=== PATIENT | male | born 1965 | race Caucasian/White ===

== ENCOUNTER 2019-02-23 10:26 | Observation (INO) | payer OTHER, SELFPAY ==
[2019-02-23] VITALS (78 sets, daily range): BP systolic 114–155; BP diastolic 64–116; PULSE 59–91; RESP 10–20; TEMP 37.6; O2SAT 93–99
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
[2019-02-23 10:58] LABS: Abs Immature Grans 0.01 k/cumm (0.0-0.09); Absolute Basophil Count 0.02 k/cumm (0.0-0.2); Absolute Lymphocyte Count 2.14 k/cumm (1.2-3.4); Absolute Neutrophil Count 4.06 k/cumm (1.2-6.7); Basophils % 0.3; Eosinophils % 1.5; HCT 44.1 % (40.0-50.0); HGB 15.4 g/dL (13.5-17.5); Immature Grans % 0.1; Lymphocytes % 31.3; Mean Corp. HGB Concentration 34.9 g/dL (32.0-36.0); Mean Corpuscular Hemoglobin 31.6 pg (27.0-33.0); Mean Corpuscular Volume 90.4 fL (80-95); Mean Platelet Volume 10.7 fL (8.0-11.0); Monocytes % 7.3; Neutrophils % 59.5; Platelet Count 188 x1000/uL (130-400); RBC 4.88 m/cumm (4.50-6.00); RBC Distribution Width 12.7 % (11.8-14.1); White Blood Cell Count 6.83 k/cumm (4.4-10.8)
[2019-02-23 11:19] LABS: ALT 54 U/L (12-78); AST 20 U/L (15-37); Albumin 3.9 g/dL (3.4-5.0); Alkaline Phosphatase 54 U/L (46-116); Anion Gap 8.7 mmol/L (3-11); BUN 21 mg/dL (7-18); Bilirubin, Total 0.6 mg/dL (0.2-1.0); CO2 27.3 mmol/L (21.0-32.0); CREATININE 1.22 mg/dL (0.70-1.30); Chloride 104 mmol/L (98-107); Creatine Kinase 139 U/L (39-308); Glucose 133 mg/dL (70-100); Magnesium 1.7 mg/dL (1.8-2.4); Potassium 3.7 mmol/L (3.5-5.1); Sodium 140 mmol/L (136-145); Total Protein 7.5 g/dL (6.4-8.2)
[2019-02-23 11:20] LABS: Troponin I < 0.05 ng/mL (0.00-0.06)
--- NOTE | 2019-02-23 12:53 | NUR.NOTE ---
pt resting in bed vs on traffic monitor specialist no distress noted none stated pending admistion bed Nursing Note:
--- NOTE | 2019-02-23 13:08 | NUR.NOTE ---
sbar to icu nurse at bedside pt [id number] makes needs known vs on monitor transported via wheelchair by icu nurse Nursing Note:
[2019-02-23] MEDS: MAGNESIUM SULFATE 1 GM/100 ML BAG IVPB (15:00)
[2019-02-23] MEDS: Normal Saline 1,000 ML 125 ML IV (15:00)
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
[2019-02-23 18:59] LABS: Troponin I < 0.05 ng/mL (0.00-0.06)
[2019-02-23 19:57] LABS: Creatine Kinase 139 U/L (39-308)
[2019-02-23] MEDS: Normal Saline 1,000 ML 150 ML IV (21:50)
[2019-02-23] MEDS: Ibuprofen 600 MG TAB PO (21:52)
[2019-02-24] VITALS (51 sets, daily range): BP systolic 93–117; BP diastolic 53–85; PULSE 52–84; RESP 9–21; O2SAT 97
[2019-02-24 00:34] LABS: Creatine Kinase 126 U/L (39-308)
[2019-02-24 00:35] LABS: Troponin I < 0.05 ng/mL (0.00-0.06)
[2019-02-24] MEDS: Normal Saline 1,000 ML 150 ML IV (04:20)
[2019-02-24 07:01] LABS: Abs Immature Grans 0.01 k/cumm (0.0-0.09); Absolute Basophil Count 0.03 k/cumm (0.0-0.2); Absolute Eosinophil Count 0.16 k/cumm (0.0-0.7); Absolute Lymphocyte Count 1.82 k/cumm (1.2-3.4); Absolute Monocyte Count 0.39 k/cumm (0.11-0.7); Absolute Neutrophil Count 2.74 k/cumm (1.2-6.7); Basophils % 0.6; Eosinophils % 3.1; HCT 42.6 % (40.0-50.0); HGB 14.5 g/dL (13.5-17.5); Immature Grans % 0.2; Lymphocytes % 35.3; Mean Corpuscular Hemoglobin 31.3 pg (27.0-33.0); Mean Corpuscular Volume 91.8 fL (80-95); Mean Platelet Volume 10.5 fL (8.0-11.0); Monocytes % 7.6; Neutrophils % 53.2; Platelet Count 177 x1000/uL (130-400); RBC 4.64 m/cumm (4.50-6.00); RBC Distribution Width 12.7 % (11.8-14.1); White Blood Cell Count 5.15 k/cumm (4.4-10.8)
[2019-02-24 07:21] LABS: Anion Gap 8.1 mmol/L (3-11); BUN 17 mg/dL (7-18); CO2 25.9 mmol/L (21.0-32.0); CREATININE 1.16 mg/dL (0.70-1.30); Chloride 106 mmol/L (98-107); Creatine Kinase 114 U/L (39-308); Glucose 101 mg/dL (70-100); Magnesium 1.9 mg/dL (1.8-2.4); Potassium 4.2 mmol/L (3.5-5.1); Sodium 140 mmol/L (136-145); Troponin I < 0.05 ng/mL (0.00-0.06)
[2019-02-24] MEDS: Levothyroxine 75 MCG TAB PO (07:56)
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
== END 2019-02-24 13:00 | disposition home or self-care (01) ==
LOC: ER 13:19 → ICU 15:26
PROVIDERS: Admitting Provider Internal Medicine; Emergency Provider Student in an Organized Health Care Education/Training Program; PCP Family Medicine; Visit Provider Internal Medicine
DX: T75.4XXA Electrocution, initial encounter (principal); R20.2 Paresthesia of skin; W85.XXXA Exposure to electric transmission lines, initial encounter; E83.42 Hypomagnesemia; Y99.0 Civilian activity done for income or pay; E03.9 Hypothyroidism, unspecified
CPT/HCPCS: 36415; 80048; 80053; 82550; 93005; 99217; 99219; 99285; 83735; 84484; 85025; 93010; 99284; G0378; J3475

== ENCOUNTER 2019-02-26 08:23 | Outpatient (CLI) | payer OTHER, SELFPAY ==
[2019-02-26 10:48] LABS: Anion Gap 8.3 mmol/L (3-11); BUN 17 mg/dL (7-18); CO2 28.7 mmol/L (21.0-32.0); CREATININE 1.03 mg/dL (0.70-1.30); Calcium 8.5 mg/dL (8.5-10.1); Chloride 103 mmol/L (98-107); Glucose 91 mg/dL (70-100); Potassium 4.6 mmol/L (3.5-5.1); Sodium 140 mmol/L (136-145)
[2019-02-26 11:05] LABS: Creatine Kinase 209 U/L (39-308)
== END 2019-02-26 08:43 ==
PROVIDERS: PCP Family Medicine; Visit Provider Internal Medicine
DX: T75.4XXA Electrocution, initial encounter (principal); E03.9 Hypothyroidism, unspecified
CPT/HCPCS: 36415; 80048; 82550